=== PATIENT | male | born 1995 | race Caucasian/White ===

== ENCOUNTER 2024-12-28 19:59 | Emergency (ER) | payer SELFPAY ==
[2024-12-28 20:52] LABS: BASOPHILS ABSOLUTE AUTO 0.11 K/uL (0.00-0.10); BASOPHILS PERCENT AUTO 1.3 % (0.1-1.3); EOSINOPHILS ABSOLUTE AUTO 0.11 K/uL (0.00-0.40); EOSINOPHILS PERCENT AUTO 1.3 % (0.0-5.4); HEMATOCRIT 41.7 % (38.4-49.7); HEMOGLOBIN 14.9 g/dL (12.9-16.9); IMMATURE GRAN ABSOLUTE AUTO 0.03 K/uL (0.00-0.23); IMMATURE GRAN PERCENT AUTO 0.3 % (0.0-0.7); LYMPHOCYTES ABSOLUTE AUTO 1.57 K/uL (0.8-3.3); LYMPHOCYTES PERCENT AUTO 18.1 % (11.4-47.7); MEAN CORPUSCULAR HEMOGLOBIN 33.8 pg (31.6-35.5); MEAN CORPUSCULAR HGB CONC 35.7 g/dL (31.6-35.5); MEAN CORPUSCULAR VOLUME 94.6 fL (81.4-99.0); MONOCYTES ABSOLUTE AUTO 1.16 K/uL (0.20-0.90); MONOCYTES PERCENT AUTO 13.3 % (3.3-12.6); NEUTROPHILS ABSOLUTE AUTO 5.71 K/uL (1.0-7.6); NEUTROPHILS PERCENT AUTO 65.7 % (40.0-78.1); PLATELET COUNT,PLT 60 K/uL (130-375); RED BLOOD CELL COUNT 4.41 M/uL (4.14-5.76); WHITE BLOOD CELL COUNT,WBC 8.7 K/uL (3.2-11.0)
[2024-12-28 21:12] LABS: ALANINE AMINOTRANSFERASE,ALT 96 U/L (12-78); ALBUMIN 4.2 g/dL (3.4-5.0); ALKALINE PHOSPHATASE 160 U/L (46-116); BILIRUBIN TOTAL 7.8 mg/dL (0.2-1.0); BLOOD UREA NITROGEN,BUN 12 mg/dL (7-18); CALCIUM 10.2 mg/dL (8.5-10.1); CARBON DIOXIDE,CO2 29 mmol/L (21-32); CHLORIDE,CL 93 mmol/L (100-108); CREATININE 0.8 mg/dL (0.8-1.3); EST CRCL DRUG DOSING (CG) 133.79 mL/min; ESTIMATED GFR 121 mL/min (>60); GLUCOSE RANDOM 109 mg/dL (74-106); POTASSIUM,K 3.2 mmol/L (3.6-5.2); PROTEIN TOTAL,TP 8.5 g/dL (6.4-8.2); SODIUM,NA 132 mmol/L (140-148)
[2024-12-28 21:14] LABS: ANION GAP 13.2 mmol/L (5.0-14.0); ASPARTATE AMNIOTRANSFERASE,AST 187 U/L (15-37)
== END 2024-12-28 22:30 | disposition home or self-care (01) ==
LOC: JP.ED 19:59
DX: K70.10 Alcoholic hepatitis without ascites (principal)
CPT/HCPCS: 36415; 80053; 85025; 99284

== ENCOUNTER 2025-06-30 08:31 | Emergency (ER) | payer MEDICAID ==
[2025-06-30 08:45] LABS: PLATELET COUNT,PLT 270 K/uL (130-375); RED BLOOD CELL COUNT 2.08 M/uL (4.14-5.76); WHITE BLOOD CELL COUNT,WBC 13.5 K/uL (3.2-11.0)
[2025-06-30 09:02] LABS: INR 1.3
[2025-06-30 09:04] LABS: BAND ABSOLUTE MAN 0.14 K/uL; BAND PERCENT MAN 1 % (5-11); EOSINOPHILS ABSOLUTE MAN 0.14 K/uL (0.00-0.40); EOSINOPHILS PERCENT MAN 1 % (2-4); LYMPHOCYTES ABSOLUTE MAN 4.73 K/uL (0.8-3.3); LYMPHOCYTES PERCENT MAN 35 % (24-44); MONOCYTES ABSOLUTE MAN 1.62 K/uL (0.20-0.90); MONOCYTES PERCENT MAN 12 % (2-6); NEUTROPHILS ABSOLUTE MAN 6.89 K/uL (1.0-7.6); SEG NEUTROPHILS PERCENT MAN 51 % (36-66)
[2025-06-30 09:08] LABS: A/G RATIO 0.7 (1.2-2.2); ALANINE AMINOTRANSFERASE,ALT 113 U/L (12-78); ASPARTATE AMNIOTRANSFERASE,AST 300 U/L (15-37); BILIRUBIN TOTAL 7.9 mg/dL (0.2-1.0); BLOOD UREA NITROGEN,BUN 13 mg/dL (7-18); CARBON DIOXIDE,CO2 31 mmol/L (21-32); CHLORIDE,CL 101 mmol/L (100-108); CREATININE 0.6 mg/dL (0.8-1.3); ESTIMATED GFR 132 mL/min (>60); GLUCOSE RANDOM 136 mg/dL (74-106); POTASSIUM,K 3.3 mmol/L (3.6-5.2); PROTEIN TOTAL,TP 6.3 g/dL (6.4-8.2); SODIUM,NA 140 mmol/L (140-148)
[2025-06-30] MEDS ORDERED: Octreotide 500 MCG in Sodium Chloride 0.9% 497.5 ML IV SCH (10:15)
[2025-06-30] MEDS: Ondansetron 4 MG/2 ML SDV IVPUSH ONE (10:34)
[2025-06-30] MEDS: Octreotide 500 MCG in Sodium Chloride 0.9% 497.5 ML IV SCH (10:35)
[2025-06-30] MEDS: Octreotide 100 MCG/ML SDV IVPUSH ONE (10:47)
[2025-06-30] MEDS: LORazepam 2 MG/ML SDV IVPUSH ONE (10:49)
[2025-06-30] MEDS: fentaNYL 50 MCG/ML SDV IVPUSH ONE (11:09)
[2025-06-30] MEDS ORDERED: [UNRECOGNIZED DRUG - OTHER] IV ONE (11:15)
[2025-06-30] MEDS ORDERED: FOLIC ACID IV ONE ×2 (11:15)
[2025-06-30] MEDS ORDERED: MVI, Adult with Vitamin K 10 ML, Thiamine 100 MG, Folic Acid 1 MG, Magnesium Sulf 1 GM/... IV ONE (11:15)
[2025-06-30] MEDS ORDERED: MVI IV ONE ×2 (11:15)
[2025-06-30] MEDS ORDERED: THIAMINE IV ONE ×2 (11:15)
[2025-06-30] MEDS ORDERED: [UNRECOGNIZED DRUG - OTHER] IV ONE (11:15)
[2025-06-30] MEDS ORDERED: VITAMIN K IV ONE ×2 (11:15)
[2025-06-30] MEDS ORDERED: MVI, Adult with Vitamin K 10 ML, Thiamine 100 MG, Folic Acid 1 MG, Magnesium Sulf 1 GM/... IV SCH (11:15)
[2025-06-30] MEDS ORDERED: methylPREDNISolone Sod Succ 125 MG in Dextrose 5% in Water 100 ML IV ONE (11:39)
[2025-06-30] MEDS: diphenhydrAMINE 50 MG/ML SDV IVPUSH ONE (11:46)
[2025-06-30] MEDS: methylPREDNISolone Sodium Succinate 125 MG/2 ML SDV IVPUSH ONE (11:49)
[2025-06-30 12:44] LABS: BASOPHILS ABSOLUTE AUTO 0.14 K/uL (0.00-0.10); BASOPHILS PERCENT AUTO 1.3 % (0.1-1.3); EOSINOPHILS ABSOLUTE AUTO 0.04 K/uL (0.00-0.40); EOSINOPHILS PERCENT AUTO 0.4 % (0.0-5.4); IMMATURE GRAN ABSOLUTE AUTO 0.05 K/uL (0.00-0.23); IMMATURE GRAN PERCENT AUTO 0.5 % (0.0-0.7); LYMPHOCYTES ABSOLUTE AUTO 2.31 K/uL (0.8-3.3); LYMPHOCYTES PERCENT AUTO 22.1 % (11.4-47.7); MONOCYTES ABSOLUTE AUTO 1.01 K/uL (0.20-0.90); MONOCYTES PERCENT AUTO 9.7 % (3.3-12.6); NEUTROPHILS ABSOLUTE AUTO 6.88 K/uL (1.0-7.6); NEUTROPHILS PERCENT AUTO 66.0 % (40.0-78.1); PLATELET COUNT,PLT 223 K/uL (130-375); RED BLOOD CELL COUNT 2.11 M/uL (4.14-5.76); WHITE BLOOD CELL COUNT,WBC 10.4 K/uL (3.2-11.0)
[2025-06-30] MEDS ORDERED: Sodium Chloride 0.9% 10 ML Syringe FLUSH ONE (12:53)
[2025-06-30] MEDS ORDERED: Iopamidol 612 MG/ML 100 ML Bottle IV ONE (12:53)
[2025-06-30] MEDS: THIAMINE IV ONE (13:34)
[2025-06-30] MEDS: MVI IV ONE (13:34)
[2025-06-30] MEDS: VITAMIN K IV ONE (13:34)
[2025-06-30] MEDS: FOLIC ACID IV ONE (13:34)
[2025-06-30] MEDS: [UNRECOGNIZED DRUG - OTHER] IV ONE (13:34)
[2025-06-30 16:46] LABS: APPEARANCE,URINE CLEAR (CLEAR); GLUCOSE,URINE NEGATIVE (NEGATIVE); OCCULT BLOOD,URINE NEGATIVE (NEGATIVE)
[2025-06-30 16:53] LABS: AMPHETAMINES SCREEN, URINE NEGATIVE (NEGATIVE); METHADONE SCREEN, URINE NEGATIVE (NEGATIVE); METHAMPHETAMINES SCREEN, URINE NEGATIVE (NEGATIVE); OXYCODONE SCREEN,URINE NEGATIVE (NEGATIVE); PROPOXYPHENE SCREEN,URINE NEGATIVE (NEGATIVE); THC SCREEN,URINE 50 NG/ML NEGATIVE (NEGATIVE)
[2025-06-30 16:54] LABS: SQUAMOUS EPITHELIAL CELLS,UR NOT SEEN /HPF; UROTHELIAL CELLS,URINE NOT SEEN /HPF
== END 2025-06-30 19:22 ==
LOC: JP.ED 08:31
DX: K92.2 Gastrointestinal hemorrhage, unspecified (principal); D64.9 Anemia, unspecified; F10.29 Alcohol dependence with unspecified alcohol-induced disorder; F10.220 Alcohol dependence with intoxication, uncomplicated; Z91.013 Allergy to seafood; Z79.899 Other long term (current) drug therapy; Y90.9 Presence of alcohol in blood, level not specified
CPT/HCPCS: 36415; 36430; 74177; 80053; 80305; 80307; 81001; 82140; 83690; 83735; 85025; 85610; 86850; 86900; 86901; 86920; 86922; 94640; 96365; 96366; 96368; 96375; 99291; 99292; J1200; J1808; J2060; J2354; J2405; J2470; J2919; J3010; J3411; J3475; J7030; J7040; J7620; P9016; 99285; A9270-GY